=== PATIENT | female | born 1955 | race Caucasian/White ===

== ENCOUNTER 2018-06-07 10:32 | Outpatient (CLI) | payer BC | END 2018-06-07 10:33 | disposition home or self-care (01) | LOC: BICMAMMO 10:32 | PROVIDERS: ATTEND Obstetrics & Gynecology | DX: Z12.31 Encounter for screening mammogram for malignant neoplasm of breast (principal); Z80.3 Family history of malignant neoplasm of breast | CPT/HCPCS: 77063; 77067 ==

== ENCOUNTER 2018-08-07 05:57 | Day surgery (SDC) | payer BC ==
[2018-08-04 11:52] VITALS: BMI 21.4
[2018-08-07] MEDS ORDERED: Fentanyl 250 MCG/5 ML VIAL ONE (06:22)
[2018-08-07] MEDS ORDERED: CEFAZOLIN 2 GM/50 ML BAG ONE (06:45)
[2018-08-07] MEDS ORDERED: Bupivacaine HCl 0.25%/Epi 0.0005/PF 10 ML VIAL FS ONE ×3 (06:45→10:50)
[2018-08-07] MEDS ORDERED: Lidocaine 1% (PF) 30 ML VIAL ONE (06:45)
[2018-08-07] MEDS ORDERED: Heparin 5,000 UNITS/ML VIAL ONE (06:46)
[2018-08-07] MEDS ORDERED: Fentanyl 100 MCG/2 ML VIAL ONE (10:30)
[2018-08-07] MEDS ORDERED: HYDROcodone/Acetaminophen 5/325 mg Tablet ONE (11:41)
[2018-08-07] MEDS ORDERED: Lidocaine 1% PF 5 ML VIAL ONE (14:45)
[2018-08-07] MEDS ORDERED: Dexamethasone 20 MG/5 ML VIAL ONE (14:45)
[2018-08-07] MEDS ORDERED: PROPOFOL 200 MG/20 ML VIAL ONE (14:45)
[2018-08-07] MEDS ORDERED: Glycopyrrolate 0.2 MG/ML 5 ML SYRINGE ONE (14:45)
[2018-08-07] MEDS ORDERED: Rocuronium Bromide 10 MG/ML (10ML VIAL) ONE (14:45)
[2018-08-07] MEDS ORDERED: Ondansetron PF 4 MG/2 ML Vial ONE (14:45)
--- NOTE | 2018-08-08 10:13 | OP ---
DATE OF PROCEDURE: 08/07/2018 PREOPERATIVE DIAGNOSIS: Macromastia. POSTOPERATIVE DIAGNOSIS: Macromastia. PROCEDURE PERFORMED: Bilateral breast reduction (04295.50). OPERATIVE FINDINGS: Right breast resection 700 g. Left breast resection 620 g. DESCRIPTION OF PROCEDURE: Following the induction of adequate anesthesia, the patient was prepped and draped in the usual sterile fashion in the supine position. The patient desired to be smaller than a pedicle breast reduction could achieve. We elected for free nipple grafts. The nipple for circumcised around a 42 mm nipple sizer. It was then harvested as a full-thickness skin graft. Skin flaps were then raised superiorly, medially, and laterally. Dermoglandular unit was resected on the remaining tissue. A pedicle was sculpted and secured superiorly with 2-0 PDS suture. Modified Pepper pattern closure was achieved with 3-0 PDS suture and 3-0 Monocryl suture. The nipple was quilted into a de-epithelialized 42 mm nipple defect at the apex of the inverted T. This was done with 3-0 Prolene suture. The wounds were dressed with Dermabond. A similar procedure was done on each side. All surgical joaquin were copiously irrigated and inspected for meticulous hemostasis prior to closure. Job ID: [id number] [facility]
--- NOTE | 2018-08-10 23:01 | EKG ---
Test Reason : PREOP Blood Pressure : / mmHG Vent. Rate : 061 BPM Atrial Rate : 061 BPM P-R Int : 168 ms QRS Dur : 100 ms QT Int : 408 ms P-R-T Axes : 070 083 067 degrees QTc Int : 410 ms Normal sinus rhythm Normal ECG No previous ECGs available Confirmed by ASHLEY PERRY M.D. ([id number]) on 08/10/2018 11:01:16 PM Referred By: LILI Confirmed By:ASHLEY PERRY M.D.
== END 2018-08-07 13:03 | disposition home or self-care (01) ==
LOC: SDC 05:57
PROVIDERS: ATTEND Plastic Surgery
PROC: 0H0V0ZZ Alteration of Bilateral Breast, Open Approach (ICD-10-PCS; principal; 2018-08-07)
DX: N60.32 Fibrosclerosis of left breast (principal); N60.31 Fibrosclerosis of right breast; N60.41 Mammary duct ectasia of right breast; E03.9 Hypothyroidism, unspecified; Z90.89 Acquired absence of other organs; Z88.1 Allergy status to other antibiotic agents; Z79.899 Other long term (current) drug therapy; Z98.890 Other specified postprocedural states
CPT/HCPCS: 88305; 93005; 93010; J1100; J1644; J2001; J2405; J2704; J3010

== ENCOUNTER 2022-03-08 10:17 | Outpatient (CLI) | payer MEDICARE, BC | END 2022-03-08 10:18 | disposition home or self-care (01) | LOC: BICMAMMO 10:17 | PROVIDERS: ATTEND Obstetrics & Gynecology | DX: Z13.820 Encounter for screening for osteoporosis (principal); M85.89 Other specified disorders of bone density and structure, multiple sites | CPT/HCPCS: 77080 ==

== ENCOUNTER 2022-09-21 18:03 | Inpatient (IN) | payer OTHER, MEDICARE, BC ==
[2022-09-21] MEDS ORDERED: Ondansetron PF 4 MG/2 ML Vial ONE (18:30)
[2022-09-21] MEDS ORDERED: Morphine 4 MG/ML VIAL ONE (18:30)
[2022-09-21] MEDS ORDERED: Boostrix 0.5 ML (Tdap) VIAL (>/=7 yrs of age) ONE (18:37)
[2022-09-21] MEDS ORDERED: Lidocaine 1% w/Epinephrine 1:100K 20 ML VIAL ONE (18:37)
[2022-09-21] MEDS ORDERED: Bacitracin 1 PK ONE (18:37)
[2022-09-21] MEDS ORDERED: traMADol HCl 50 MG TAB ONE (20:18)
[2022-09-21] MEDS ORDERED: Acetaminophen 500 MG TAB ONE (20:19)
[2022-09-21] MEDS ORDERED: Ondansetron ODT 4 MG TAB PO PRN (21:00)
[2022-09-21] MEDS ORDERED: Dextrose 5% in Water 1,000 ML IV PRN (21:00)
[2022-09-21] MEDS ORDERED: hydrALAZINE 20 MG/ML VIAL SLOW IVP PRN (21:00)
[2022-09-21] MEDS ORDERED: Ondansetron PF 4 MG/2 ML Vial IVP PRN (21:00)
[2022-09-21] MEDS ORDERED: Morphine 4 MG/ML VIAL SLOW IVP PRN (21:00)
[2022-09-21] MEDS ORDERED: TETANUS, DIPHTHERIA TOX,ADULT (TDVAX) 0.5 ML VIAL IM ONE (21:00)
[2022-09-21] MEDS ORDERED: Dextrose 50% Abboject 50 ML SYRINGE SLOW IVP PRN (21:00)
[2022-09-21] MEDS ORDERED: Ipratropium/Albuterol 3 ML NEB NEB PRN (21:00)
[2022-09-21] MEDS ORDERED: Morphine 2 MG/ML VIAL SLOW IVP PRN (21:00)
[2022-09-21] MEDS ORDERED: traMADol HCl 50 MG TAB PO PRN (21:03)
[2022-09-21 21:23] LABS: #Lymphocytes 1.1 thou/uL (1.20-3.40); #Monocytes 0.7 thou/uL (0.11-0.59); #Neutrophils 9.7 thou/uL (1.40-6.50); %Basophils 0.2 % (0.0-1.0); %Eosinophils 0.3 % (0.0-10.0); %Lymphocytes 9.4 % (21.0-51.0); %Neutrophils 84.1 % (42.0-75.0); Hemoglobin 14.1 g/dL (12.0-16.0); Mean Corpuscular HGB CONC 33.8 g/dL (32.0-36.0); Mean Corpuscular Hemoglobin 34.9 pg (27.0-31.0); Mean Platelet Volume 7.6 fL (7.4-10.4); Platelet Count 251 10x3/uL (130-400); Red Blood Cell (RBC) Count 4.05 mill/uL (4.20-5.40); White Blood Cell (WBC) Count 11.5 10x3/uL (4.8-10.8)
[2022-09-21 21:44] LABS: Phosphorus 2.9 mg/dL (2.3-4.7)
[2022-09-21 21:45] LABS: Magnesium 1.8 mg/dL (1.6-2.6)
[2022-09-21 21:47] LABS: ALT (SGPT) 16 U/L (8-55); AST (SGOT) 20 U/L (5-34); Alkaline Phosphatase 100 U/L (40-110); Anion Gap 14 mmol/L (10-20); BUN (Urea Nitrogen) 17 mg/dL (9.8-20.1); Calc. Creatinine Clearance 0 mL/min (70-130); Calcium 8.9 mg/dL (7.8-10.44); Carbon Dioxide 23 mmol/L (23-31); Chloride 103 mmol/L (98-107); Estimated GFR 94; Globulin 2.8 g/dL (2.4-3.5); Glucose 164 mg/dL (80-115); Potassium 3.4 mmol/L (3.5-5.1); Protein, Total 6.8 g/dL (5.8-8.1); Sodium 137 mmol/L (136-145)
[2022-09-21] MEDS: Famotidine 20 MG TAB PO SCH (22:15)
[2022-09-21] MEDS: Gabapentin 100 MG CAP PO SCH (22:15)
[2022-09-21] MEDS: traMADol HCl 50 MG TAB PO SCH (22:17)
[2022-09-21] MEDS: Acetaminophen 500 MG TAB PO SCH (22:18)
[2022-09-21] MEDS ORDERED: Magnesium 2 GM/50 ML(in water) 2 GM in Premix Bag 1 BAG IVPB SCH (23:00)
[2022-09-21] MEDS ORDERED: Potassium Phosphate 30 MMOL, Magnesium Sulfate 2 GM in Sodium Chloride 0.9% 250 ML IVPB SCH (23:00)
[2022-09-21] MEDS: Cyclobenzaprine 10 MG TAB PO PRN (23:05)
[2022-09-21] MEDS: Ketorolac Tromethamine 30 MG/ML VIAL IVP SCH (23:06)
[2022-09-21 23:08] LABS: INR-International Normal Ratio 1.1; Prothrombin Time 14.4 sec (12.0-14.7)
[2022-09-21 23:34] LABS: Bacteria/HPF None Seen HPF (None Seen); Bilirubin Negative (Negative); Blood, Urine 2+ (Negative); Clarity Clear (Clear); Glucose, Urine (Dipstick) 30 mg/dL (Negative); Ketone, Urine Trace mg/dL (Negative); Leukocyte Negative Leu/uL (Negative); Nitrite Negative (Negative); Protein, Urine (Dipstick) Negative (Neg-Trace); Specific Gravity, Urine 1.016 (1.002-1.036); Squamous Epithelial None Seen HPF (0-3); Urobilinogen Normal mg/dL (Less than 2); WBC/HPF None Seen HPF (0-3); pH, Urine 5.5 (5.0-9.0)
[2022-09-22 00:10] LABS: SARS-CoV-2 NAA Rapid Test Not Detected (NotDetected)
[2022-09-22 01:54] VITALS: BMI 24.2
[2022-09-22] MEDS: traMADol HCl 50 MG TAB PO SCH ×4 (04:14→22:42)
[2022-09-22] MEDS: Acetaminophen 500 MG TAB PO SCH ×4 (04:15→22:43)
[2022-09-22] MEDS: Gabapentin 100 MG CAP PO SCH ×3 (05:46→22:44)
[2022-09-22] MEDS: Levothyroxine Sodium 75 MCG TAB PO SCH (05:46)
[2022-09-22] MEDS: Ketorolac Tromethamine 30 MG/ML VIAL IVP SCH ×3 (05:47→18:09)
[2022-09-22 07:09] LABS: #Lymphocytes 0.8 thou/uL (1.20-3.40); #Monocytes 0.7 thou/uL (0.11-0.59); #Neutrophils 6.9 thou/uL (1.40-6.50); %Eosinophils 0.1 % (0.0-10.0); %Lymphocytes 9.2 % (21.0-51.0); %Monocytes 7.9 % (0.0-10.0); %Neutrophils 82.8 % (42.0-75.0); Hemoglobin 12.8 g/dL (12.0-16.0); Mean Corpuscular HGB CONC 34.2 g/dL (32.0-36.0); Mean Corpuscular Hemoglobin 35.3 pg (27.0-31.0); Mean Platelet Volume 8.5 fL (7.4-10.4); Platelet Count 217 10x3/uL (130-400); Red Blood Cell (RBC) Count 3.63 mill/uL (4.20-5.40); White Blood Cell (WBC) Count 8.3 10x3/uL (4.8-10.8)
[2022-09-22 08:03] LABS: Anion Gap 12 mmol/L (10-20); BUN (Urea Nitrogen) 17 mg/dL (9.8-20.1); Calc. Creatinine Clearance 96 mL/min (70-130); Calcium 8.6 mg/dL (7.8-10.44); Carbon Dioxide 24 mmol/L (23-31); Chloride 103 mmol/L (98-107); Estimated GFR 96; Glucose 112 mg/dL (80-115); Magnesium 2.6 mg/dL (1.6-2.6); Phosphorus 5.3 mg/dL (2.3-4.7); Potassium 4.6 mmol/L (3.5-5.1); Sodium 134 mmol/L (136-145)
[2022-09-22] MEDS: Famotidine 20 MG TAB PO SCH ×2 (09:03→21:26)
[2022-09-22] MEDS: Senokot S 8.6-50 MG TAB PO SCH ×2 (09:04→21:26)
[2022-09-22] MEDS: Polyethylene Glycol 3350 17 GM Packet PO SCH (09:06)
[2022-09-23] MEDS: Ketorolac Tromethamine 30 MG/ML VIAL IVP SCH ×2 (00:33→05:25)
[2022-09-23] MEDS: traMADol HCl 50 MG TAB PO SCH ×4 (04:15→20:05)
[2022-09-23] MEDS: Acetaminophen 500 MG TAB PO SCH ×4 (04:16→20:04)
[2022-09-23] MEDS: Levothyroxine Sodium 75 MCG TAB PO SCH (05:26)
[2022-09-23] MEDS: Gabapentin 100 MG CAP PO SCH ×3 (05:26→22:22)
[2022-09-23 06:02] LABS: #Basophils 0.1 thou/uL (0.0-0.2); #Eosinphils 0.3 thou/uL (0.0-0.7); #Lymphocytes 1.8 thou/uL (1.20-3.40); #Monocytes 0.6 thou/uL (0.11-0.59); #Neutrophils 4.1 thou/uL (1.40-6.50); %Basophils 1.2 % (0.0-1.0); %Eosinophils 3.9 % (0.0-10.0); %Lymphocytes 26.4 % (21.0-51.0); %Monocytes 8.7 % (0.0-10.0); %Neutrophils 59.9 % (42.0-75.0); Hemoglobin 12.1 g/dL (12.0-16.0); Mean Corpuscular HGB CONC 34.3 g/dL (32.0-36.0); Mean Corpuscular Hemoglobin 35.5 pg (27.0-31.0); Mean Platelet Volume 8.2 fL (7.4-10.4); Platelet Count 181 10x3/uL (130-400); RBC Distribution Width 11.1 % (11.5-14.5); Red Blood Cell (RBC) Count 3.41 mill/uL (4.20-5.40); White Blood Cell (WBC) Count 6.8 10x3/uL (4.8-10.8)
[2022-09-23 06:27] LABS: Anion Gap 13 mmol/L (10-20); BUN (Urea Nitrogen) 19 mg/dL (9.8-20.1); Calc. Creatinine Clearance 93 mL/min (70-130); Calcium 8.2 mg/dL (7.8-10.44); Carbon Dioxide 22 mmol/L (23-31); Chloride 103 mmol/L (98-107); Estimated GFR 95; Glucose 94 mg/dL (80-115); Magnesium 2.1 mg/dL (1.6-2.6); Phosphorus 2.9 mg/dL (2.3-4.7); Potassium 4.1 mmol/L (3.5-5.1); Sodium 134 mmol/L (136-145)
[2022-09-23] MEDS ORDERED: Morphine 2 MG/ML VIAL SLOW IVP PRN (07:44)
[2022-09-23] MEDS ORDERED: PHOS-NAK 1 PKT PACK PO SCH (07:45)
[2022-09-23] MEDS: Famotidine 20 MG TAB PO SCH ×2 (08:56→20:04)
[2022-09-23] MEDS ORDERED: fentaNYL PF 100 MCG/2 ML SYRINGE ONE (11:48)
[2022-09-23] MEDS ORDERED: CEFAZOLIN 2 GM in Sodium Chloride 0.9% 100 ML IVPB SCH (12:00)
[2022-09-23] MEDS ORDERED: Sodium Chloride 0.9% 100 ML ONE (12:00)
[2022-09-23] MEDS ORDERED: CEFAZOLIN 2 GM VIAL ONE (12:00)
[2022-09-23] MEDS ORDERED: HYDROmorphone 0.5 MG/0.5 ML SYRINGE ONE (12:28)
[2022-09-23] MEDS ORDERED: Midazolam HCl 2 mg/2 ml Vial ONE (12:28)
[2022-09-23] MEDS ORDERED: Promethazine HCl 25 MG/ML VIAL ONE (12:28)
[2022-09-23] MEDS ORDERED: Lidocaine 1% PF 5 ML VIAL ONE (12:32)
[2022-09-23] MEDS ORDERED: PROPOFOL 200 MG/20 ML VIAL ONE (12:32)
[2022-09-23] MEDS ORDERED: Dexamethasone 20 MG/5 ML VIAL ONE (12:32)
[2022-09-23] MEDS ORDERED: Ondansetron PF 4 MG/2 ML Vial ONE (12:32)
[2022-09-23] MEDS ORDERED: PHENYLEPHRINE-NS 100 MCG/ML 10 ML SYRINGE ONE (12:32)
[2022-09-23] MEDS: Senokot S 8.6-50 MG TAB PO SCH ×2 (12:36→20:05)
[2022-09-23] MEDS: Polyethylene Glycol 3350 17 GM Packet PO SCH (12:36)
[2022-09-23] MEDS ORDERED: Ondansetron HCl/PF 4 MG/2 ML Vial IVP PRN (13:33)
[2022-09-23] MEDS ORDERED: Promethazine HCl 25 MG/ML VIAL IM PRN (13:33)
[2022-09-23] MEDS ORDERED: Metoprolol Tartrate 25 MG TAB PO SCH (17:15)
[2022-09-23] MEDS ORDERED: Metoprolol Tartrate 50 MG TAB PO SCH (17:30)
[2022-09-23] MEDS ORDERED: Sodium Chloride 0.9% 500 ML IV SCH ×2 (17:30)
[2022-09-23 17:40] LABS: Anion Gap 14 mmol/L (10-20); BUN (Urea Nitrogen) 15 mg/dL (9.8-20.1); Calc. Creatinine Clearance 90 mL/min (70-130); Calcium 8.9 mg/dL (7.8-10.44); Carbon Dioxide 26 mmol/L (23-31); Chloride 103 mmol/L (98-107); Estimated GFR 92; Glucose 110 mg/dL (80-115); Phosphorus 2.8 mg/dL (2.3-4.7); Potassium 4.5 mmol/L (3.5-5.1); Sodium 138 mmol/L (136-145)
[2022-09-23 17:45] LABS: Troponin I Less than 0.010 ng/mL (< 0.028)
[2022-09-23 17:59] LABS: #Lymphocytes 0.5 thou/uL (1.20-3.40); #Monocytes 0.2 thou/uL (0.11-0.59); #Neutrophils 8.6 thou/uL (1.40-6.50); %Basophils 0.2 % (0.0-1.0); %Eosinophils 0.2 % (0.0-10.0); %Lymphocytes 5.5 % (21.0-51.0); %Monocytes 2.1 % (0.0-10.0); Mean Corpuscular HGB CONC 34.2 g/dL (32.0-36.0); Mean Corpuscular Hemoglobin 35.8 pg (27.0-31.0); Mean Platelet Volume 8.2 fL (7.4-10.4); Platelet Count 194 10x3/uL (130-400); RBC Distribution Width 11.1 % (11.5-14.5); Red Blood Cell (RBC) Count 3.62 mill/uL (4.20-5.40); White Blood Cell (WBC) Count 9.4 10x3/uL (4.8-10.8)
[2022-09-23] MEDS ORDERED: Sodium Phosphate 15 MMOL in Sodium Chloride 0.9% 250 ML 250 ML IVPB SCH (18:15)
[2022-09-23] MEDS ORDERED: Hydrocortisone Sod Succ/PF 100 mg/2 ml Vial IVP SCH (18:15)
[2022-09-23] MEDS: CEFAZOLIN 2 GM in Sodium Chloride 0.9% 100 ML IVPB SCH (19:59)
[2022-09-24] MEDS: Hydrocortisone Sod Succ/PF 100 mg/2 ml Vial IVP SCH ×4 (00:15→18:43)
[2022-09-24] MEDS: Cyclobenzaprine 10 MG TAB PO PRN ×2 (00:19→08:31)
[2022-09-24] MEDS: traMADol HCl 50 MG TAB PO SCH ×4 (02:58→20:52)
[2022-09-24] MEDS: Acetaminophen 500 MG TAB PO SCH ×5 (02:58→20:52)
[2022-09-24] MEDS: CEFAZOLIN 2 GM in Sodium Chloride 0.9% 100 ML IVPB SCH (04:03)
[2022-09-24] MEDS: Levothyroxine Sodium 75 MCG TAB PO SCH (06:01)
[2022-09-24] MEDS: Gabapentin 100 MG CAP PO SCH ×3 (06:01→20:51)
[2022-09-24 06:06] LABS: #Lymphocytes 0.6 thou/uL (1.20-3.40); #Monocytes 0.7 thou/uL (0.11-0.59); #Neutrophils 7.5 thou/uL (1.40-6.50); %Eosinophils 0.1 % (0.0-10.0); %Lymphocytes 6.5 % (21.0-51.0); %Monocytes 8.2 % (0.0-10.0); %Neutrophils 85.3 % (42.0-75.0); Hemoglobin 10.7 g/dL (12.0-16.0); Mean Corpuscular Hemoglobin 36.3 pg (27.0-31.0); Platelet Count 187 10x3/uL (130-400); RBC Distribution Width 10.8 % (11.5-14.5); Red Blood Cell (RBC) Count 2.94 mill/uL (4.20-5.40); White Blood Cell (WBC) Count 8.8 10x3/uL (4.8-10.8)
[2022-09-24 06:25] LABS: Anion Gap 12 mmol/L (10-20); BUN (Urea Nitrogen) 16 mg/dL (9.8-20.1); Calc. Creatinine Clearance 93 mL/min (70-130); Calcium 8.2 mg/dL (7.8-10.44); Carbon Dioxide 22 mmol/L (23-31); Chloride 105 mmol/L (98-107); Estimated GFR 95; Glucose 125 mg/dL (80-115); Phosphorus 2.8 mg/dL (2.3-4.7); Potassium 3.6 mmol/L (3.5-5.1); Sodium 135 mmol/L (136-145)
[2022-09-24] MEDS: Senokot S 8.6-50 MG TAB PO SCH ×2 (08:11→20:51)
[2022-09-24] MEDS: Polyethylene Glycol 3350 17 GM Packet PO SCH (08:11)
[2022-09-24] MEDS: Famotidine 20 MG TAB PO SCH ×2 (08:13→20:51)
[2022-09-24] MEDS ORDERED: Potassium Phosphate 15 MMOL in Sodium Chloride 0.9% 250 ML 250 ML IVPB SCH (09:00)
[2022-09-24] MEDS ORDERED: Aspirin 81 mg Enteric Coated Tablet PO SCH (09:00)
[2022-09-24] MEDS ORDERED: Cyclobenzaprine 10 MG TAB PO PRN (09:37)
[2022-09-24] MEDS: Apixaban 5 MG TAB PO SCH (20:51)
[2022-09-24] MEDS ORDERED: Apixaban 5 MG TAB PO SCH (21:00)
[2022-09-25] MEDS: Hydrocortisone Sod Succ/PF 100 mg/2 ml Vial IVP SCH ×2 (00:49→05:37)
[2022-09-25] MEDS: traMADol HCl 50 MG TAB PO SCH ×2 (03:52→08:37)
[2022-09-25] MEDS: Acetaminophen 500 MG TAB PO SCH ×2 (03:52→08:33)
[2022-09-25] MEDS: Levothyroxine Sodium 75 MCG TAB PO SCH (05:37)
[2022-09-25] MEDS: Gabapentin 100 MG CAP PO SCH ×2 (05:37→13:55)
[2022-09-25 06:08] LABS: #Monocytes 0.7 thou/uL (0.11-0.59); #Neutrophils 7.1 thou/uL (1.40-6.50); %Basophils 0.1 % (0.0-1.0); %Eosinophils 0.1 % (0.0-10.0); %Lymphocytes 11.3 % (21.0-51.0); %Monocytes 7.9 % (0.0-10.0); %Neutrophils 80.6 % (42.0-75.0); Hemoglobin 9.5 g/dL (12.0-16.0); Mean Corpuscular HGB CONC 33.9 g/dL (32.0-36.0); Mean Corpuscular Hemoglobin 35.4 pg (27.0-31.0); Mean Platelet Volume 8.3 fL (7.4-10.4); Platelet Count 202 10x3/uL (130-400); RBC Distribution Width 11.2 % (11.5-14.5); Red Blood Cell (RBC) Count 2.68 mill/uL (4.20-5.40); White Blood Cell (WBC) Count 8.8 10x3/uL (4.8-10.8)
[2022-09-25 06:48] LABS: Anion Gap 10 mmol/L (10-20); BUN (Urea Nitrogen) 16 mg/dL (9.8-20.1); Calc. Creatinine Clearance 107 mL/min (70-130); Calcium 8.8 mg/dL (7.8-10.44); Carbon Dioxide 27 mmol/L (23-31); Chloride 108 mmol/L (98-107); Estimated GFR 99; Glucose 116 mg/dL (80-115); Magnesium 2.1 mg/dL (1.6-2.6); Phosphorus 2.7 mg/dL (2.3-4.7); Potassium 4.1 mmol/L (3.5-5.1); Sodium 141 mmol/L (136-145)
[2022-09-25] MEDS ORDERED: PHOS-NAK 1 PKT PACK PO SCH (07:30)
[2022-09-25] MEDS: Polyethylene Glycol 3350 17 GM Packet PO SCH (08:33)
[2022-09-25] MEDS: Apixaban 5 MG TAB PO SCH (08:34)
[2022-09-25] MEDS: Senokot S 8.6-50 MG TAB PO SCH (08:35)
[2022-09-25] MEDS: Famotidine 20 MG TAB PO SCH (08:35)
[2022-09-25 11:50] VITALS: BP 132/78; TEMP 97.8
[2022-09-25] MEDS ORDERED: Hydrocortisone Sod Succ/PF 100 mg/2 ml Vial IVP SCH (12:00)
== END 2022-09-25 14:19 | DRG 481 ==
LOC: ERS 18:03 → SURG B 19:36
PROVIDERS: ADMIT Surgery; ATTEND Surgery
PROC: 0HQ1XZZ Repair Face Skin, External Approach (ICD-10-PCS; 2022-09-21)
PROC: 0QS706Z Reposition Left Upper Femur with Intramedullary Internal Fixation Device, Open Approach (ICD-10-PCS; principal; 2022-09-23)
DX: S72.22XA Displaced subtrochanteric fracture of left femur, initial encounter for closed fracture (principal); D62 Acute posthemorrhagic anemia; E27.40 Unspecified adrenocortical insufficiency; Z20.822 Contact with and (suspected) exposure to COVID-19; S01.81XA Laceration without foreign body of other part of head, initial encounter; E03.9 Hypothyroidism, unspecified; I48.91 Unspecified atrial fibrillation; V18.4XXA Pedal cycle driver injured in noncollision transport accident in traffic accident, initial encounter; Y92.410 Unspecified street and highway as the place of occurrence of the external cause; Z98.42 Cataract extraction status, left eye; Z98.41 Cataract extraction status, right eye; Z90.89 Acquired absence of other organs; Z98.890 Other specified postprocedural states; Z88.1 Allergy status to other antibiotic agents; Z79.899 Other long term (current) drug therapy; Z79.890 Hormone replacement therapy; Z79.01 Long term (current) use of anticoagulants
CPT/HCPCS: 12052; 36415; 70450; 71045; 72125; 72170; 80048; 80053; 81003; 81015; 82533; 83735; 84100; 84484; 85025; 85610; 85730; 86850; 86900; 86901; 90471; 90715; 93005; 93010; 96374; 96375; C1713; G0390; J1100; J1170; J1720; J1885; J2250; J2270; J2405; J2550; J2704; J3475; J3490; J7030; J7050; U0002

== ENCOUNTER 2024-05-21 12:05 | Outpatient (CLI) | payer MEDICARE ==
[2024-05-21 14:18] LABS: #Basophils 0.06 10x3/uL (0.0-0.2); %Basophils 1.2 % (0.0-1.0); %Eosinophils 3.6 % (0.0-10.0); %Lymphocytes 23.8 % (21.0-51.0); %Monocytes 7.5 % (0.0-10.0); %Neutrophils 63.7 % (42.0-75.0); Hematocrit 43.1 % (36.0-47.0); Hemoglobin 14.8 g/dL (12.0-16.0); Mean Corpuscular HGB CONC 34.3 g/dL (32.0-36.0); Mean Corpuscular Hemoglobin 34.6 pg (27.0-31.0); Mean Corpuscular Volume 100.7 fL (78.0-98.0); Mean Platelet Volume 11.2 fL (7.4-10.4); Platelet Count 249 10x3/uL (130-400); RBC Distribution Width 12.4 % (11.5-14.5); Red Blood Cell (RBC) Count 4.28 mill/uL (4.20-5.40)
[2024-05-21 14:34] LABS: INR-International Normal Ratio 1.1; PTT 30.7 sec (22.9-36.1); Prothrombin Time 14.6 sec (12.0-14.7)
[2024-05-21 14:38] LABS: Anion Gap 13 mmol/L (10-20); BUN (Urea Nitrogen) 19 mg/dL (9.8-20.1); Calc. Creatinine Clearance 0 mL/min (70-130); Calcium 9.7 mg/dL (7.8-10.44); Carbon Dioxide 30 mmol/L (23-31); Chloride 104 mmol/L (98-107); Estimated GFR 81; Glucose 94 mg/dL (80-115); Potassium 3.9 mmol/L (3.5-5.1); Sodium 143 mmol/L (136-145)
== END 2024-05-21 12:06 | disposition home or self-care (01) ==
LOC: LABBT 12:05
PROVIDERS: ATTEND Internal Medicine Cardiovascular Disease
DX: Z01.812 Encounter for preprocedural laboratory examination (principal); I48.0 Paroxysmal atrial fibrillation
CPT/HCPCS: 80048; 85025; 85610; 85730

== ENCOUNTER 2024-05-23 08:57 | Day surgery (SDC) | payer MEDICARE ==
[2024-05-21 12:27] VITALS: BMI 21.4
[2024-05-23] MEDS ORDERED: Heparin 10,000 UNITS/ 10 ML VIAL ONE (09:22)
[2024-05-23] MEDS ORDERED: Heparin 25,000 units/D5W 500 ML ONE (09:22)
[2024-05-23] MEDS ORDERED: Protamine Sulfate 50 MG/5 ML VIAL ONE (09:22)
[2024-05-23] MEDS ORDERED: Dexamethasone 4 mg/ml Vial ONE (11:15)
[2024-05-23] MEDS ORDERED: SUGAMMADEX SODIUM 200 MG/2 ML VIAL ONE (11:15)
[2024-05-23] MEDS ORDERED: Rocuronium Bromide 10 MG/ML (10ML VIAL) ONE (11:15)
[2024-05-23] MEDS ORDERED: fentaNYL 50 mcg/mL 1 mL Vial ONE (11:15)
[2024-05-23] MEDS ORDERED: Midazolam HCl 2 mg/2 ml Vial ONE (11:15)
[2024-05-23] MEDS ORDERED: Ondansetron PF 4 MG/2 ML Vial ONE (11:15)
[2024-05-23] MEDS ORDERED: PROPOFOL 20 ML ONE (11:16)
[2024-05-23] MEDS ORDERED: PHENYLEPHRINE-NS 100 MCG/ML 10 ML SYRINGE ONE (11:16)
[2024-05-23] MEDS ORDERED: ePHEDrine Sulfate 50 MG/10 ML VIAL ONE (12:00)
[2024-05-23] MEDS ORDERED: Phenylephrine 40 MG/NS 250 ML 250 ML ONE (12:26)
[2024-05-23] MEDS ORDERED: Isoproterenol 0.2 MG/1 ML AMP ONE (13:31)
== END 2024-05-23 18:30 | disposition home or self-care (01) ==
LOC: SDC 08:57
PROVIDERS: ATTEND Internal Medicine Cardiovascular Disease
PROC: 02583ZZ Destruction of Conduction Mechanism, Percutaneous Approach (ICD-10-PCS; principal; 2024-05-23)
DX: I48.0 Paroxysmal atrial fibrillation (principal); I10 Essential (primary) hypertension; I47.20 Ventricular tachycardia, unspecified; E03.9 Hypothyroidism, unspecified; Z98.49 Cataract extraction status, unspecified eye; Z95.818 Presence of other cardiac implants and grafts; Z90.89 Acquired absence of other organs; Z98.890 Other specified postprocedural states; Z88.1 Allergy status to other antibiotic agents; Z91.048 Other nonmedicinal substance allergy status; Z79.01 Long term (current) use of anticoagulants; Z79.899 Other long term (current) drug therapy
CPT/HCPCS: 85347 ×2; 93005 ×2; 93623; 93655; 93656; 93657; C1730; C1732; C1733; C1759; C1760 ×2; C1766; C1769; C1894 ×2; J1100; J1644 ×2; J2250; J2405; J2704; J2720; J3010; 93010